=== PATIENT | female | born 1950 | race Caucasian/White ===

== ENCOUNTER → 2017-02-27 | Outpatient (CLI) | payer MEDICARE ==
[~2017-02-27] MED LIST: CALCIUM 500 + D1 TAB PO; CHANTIX; MULTI-VITAMIN1 TAB PO; PAXIL CR PO
--- NOTE | ~2017-02-27 | US6 ---
[facility] A Service of [facility] & [facility] / [facility] RADIOLOGY TEXT RESULTS PATIENT: BILLY ROCA LOCATION: [facility] : 52 UNIT #: [id number] AGE: [address]: Izaiah Bah MD SEX: F ORDER DR: [id number] [facility] [address] [place], [place] [address] [id number] O MR#: [id number] Acc #: [id number] NAME: BILLY ROCA : 1950 SEX: F STUDY DATE/TIME: 02/27/2017 8:05 UNIT: [facility] ROOM: STUDY DESCRIPTION: US Abdominal Limited Attending Physician: Izaiah Bah M.D. Referring Physician: Izaiah Bah M.D. Ordering Physician: Izaiah Bah M.D. Primary Care Physician: Izaiah Bah M.D. MEDICAL IMAGING REPORT This report is preliminary unless electronic signature is present EXAM Right upper quadrant ultrasound, 02/27/2017. HISTORY Right upper quadrant abdominal pain and nausea with fatigue for 4 weeks. Diarrhea. FINDINGS Ultrasound examination of the gallbladder is negative. There is no cholelithiasis, gallbladder wall thickening, or bile duct dilatation. The visualized liver is negative. IMPRESSION Negative gallbladder ultrasound examination. Dictated by... Mauricio Cano M.D. THIS IS AN ELECTRONICALLY VERIFIED REPORT Mauricio Cano M.D. at 02/28/2017 8:29 AM NATALY/katina TD: 02/27/2017 09:31 JOB #: [id number] MEDICAL IMAGING REPORT Page 1 of 1 COPY
== END | disposition home or self-care (01) ==
LOC: CWCC 07:38
DX: R10.11 Right upper quadrant pain (principal); R19.7 Diarrhea, unspecified
CPT/HCPCS: 76705